=== PATIENT | female | born 1975 | race Caucasian/White ===

== ENCOUNTER → 2016-10-24 | Day surgery (SDC) | payer OTHER ==
[~2016-10-24] MED LIST: ACETAMINOPHEN; ALPRAZOLAM; BIRTH CONTROL PILL PO; CELEXA; FLEXERIL PO; GABAPENTIN300 MG PO; VICODIN 5/500 T1 TAB PO
--- NOTE | ~2016-10-24 | OR ---
Unit #: [id number] #: [id number] Patient: SULEIMAN BENZ [id number] [address] [address] [id number] O MR#: [id number] NAME: SULEIMAN BENZ. ROOM: Date of Procedure: 10/24/2016 Admission Date: 10/24/2016 Surgeon: Sorin Aguilar M.D. : 1975 Attending Physician: Sorin Aguilar M.D. Primary Care Physician: Skyler Fall M.D. OPERATIVE REPORT PROCEDURE PERFORMED Esophagogastroduodenoscopy with biopsy. INDICATIONS FOR PROCEDURE The patient with epigastric and umbilical pain, nausea, and vomiting, undergoing evaluation with upper endoscopy. MEDICATIONS Monitored anesthesia. POSTOPERATIVE FINDINGS 1. Small hiatal hernia, possible Harden, biopsies taken. 2. Nodular gastritis along with several small superficial ulcers in the antral area. Biopsies taken. 3. Mild duodenitis. PLAN Follow up on the pathology report. Trial of PPIs. Avoid NSAIDs. DESCRIPTION OF PROCEDURE The patient was explained of the procedure, risks, and benefits along with risks and benefits of anesthesia. She was brought to the endoscopy room. Propofol anesthesia was given. Bite block was placed. The scope was passed down the mouth into the esophagus, stomach, duodenum, and distal duodenum. Findings as described. Biopsies taken. Gently, I pulled the scope out of the patient's mouth. She tolerated it well. Dictated by... Cele Peres/anna TD: 10/24/2016 23:28 JOB #: [id number] Unit #: [id number] #: [id number] Patient: SULEIMAN BENZ OPERATIVE REPORT X Sorin Aguilar MD X PROCEDURE OPERATIVE NOTE
== END | disposition home or self-care (01) ==
LOC: COPS 08:18
DX: K44.9 Diaphragmatic hernia without obstruction or gangrene (principal); K29.50 Unspecified chronic gastritis without bleeding; K21.0 Gastro-esophageal reflux disease with esophagitis; K25.9 Gastric ulcer, unspecified as acute or chronic, without hemorrhage or perforation; M19.90 Unspecified osteoarthritis, unspecified site; J45.909 Unspecified asthma, uncomplicated; F17.200 Nicotine dependence, unspecified, uncomplicated; K29.80 Duodenitis without bleeding
CPT/HCPCS: 88305; 88312